=== PATIENT | male | born 1930 | race Caucasian/White ===

== ENCOUNTER 2016-11-01 18:07 | Inpatient (IN) | payer MEDICARE, OTHER ==
[2016-11-01] MEDS ORDERED: Sodium Chloride 0.9% 10 ML Syringe FLUSH PRN ×2 (18:32→19:26)
[2016-11-01] MEDS ORDERED: Sodium Chloride 0.9% 1,000 ML IV ONE (18:32)
--- NOTE | 2016-11-01 18:57 | EDM.PDOC ---
ED HPI GENERAL MEDICAL PROBLEM - General Chief Complaint: Head Injury Stated Complaint: Wandering Time Seen by Provider: 11/01/16 18:30 Source of Information: Reports: Patient, EMS, Other (Medical Historian from [facility] called and spoke to our Pastrycook Madeline. Madeline said that due to safety concerns (wandering, confusion), they are unable to take Hernan back at the [facility]. They feel he needs a higher level of care. ) History Limitations: Reports: Altered Mental Status - History of Present Illness INITIAL COMMENTS - FREE TEXT/NARRATIVE: 86 year old male is brought to the ED via [facility]. On arrival he has a c-collar and backboard in place. He was found wandering in the streets [place] of [facility]. He has dried blood to his upper lip. He is a resident of [facility]. He was last seen at 5pm this evening by staff at [facility]. He has a history of dementia with worsening confusion. The [facility] feels he needs higher level of care. The patient's son, who helps with most medical decisions, is out of town this week but was notified according to report by [facility]. He has a grandson in [facility] who will also be notified. The patient is awake but unable to give much history. He denies pain except for discomfort from the c-collar The patient's grandson arrived after arrival and reports that his grandfather has a history of fractures to his neck. No other history obtained from the grandson at this time. Generalized Pain Score (Numeric/FACES): 0 - Related Data Allergies Allergy/AdvReac Type Severity Reaction Status Date / Time No Known Allergies Allergy Verified 11/01/16 18:30 Home Meds: Home Meds Acetaminophen [Tylenol] 650 mg PO DAILY 10/31/15 [History] Carboxymethylcellulose Sodium [Refresh Tears] 1 squirt EYEBOTH BID 10/31/15 [ History] Furosemide [Lasix] 40 mg PO DAILY 10/31/15 [History] Levothyroxine Sodium [Synthroid] 25 mcg PO DAILY 10/31/15 [History] Propylene Glycol/PEG 400/Pf [Systane Ultra 0.4-0.3% Eye Drp] 1 drop EYEBOTH DAILY 10/31/15 [History] Simvastatin [Zocor] 20 mg PO DAILY 10/31/15 [History] Past Medical History HEENT History: Reports: Cataract Cardiovascular History: Reports: High Cholesterol, Hypertension Gastrointestinal History: Reports: Colon Polyp, Diverticulosis Musculoskeletal History: Reports: Gout Neurological History: Reports: Head Trauma Endocrine/Metabolic History: Reports: Hypothyroidism Oncologic (Cancer) History: Reports: Bladder, Prostate - Past Surgical History HEENT Surgical History: Reports: Cataract Surgery Male Surgical History: Reports: Vasectomy Neurological Surgical History: Reports: C-Spine Social & Family History - Family History Family Medical History: Noncontributory - Tobacco Use Smoking Status *Q: Former Smoker Used Tobacco, but Quit: Yes Month Tobacco Last Used: 12 - Alcohol Use Days Per Week of Alcohol Use: 0 - Recreational Drug Use Recreational Drug Use: No - Living Situation & Occupation Living situation: Reports: Assisted Living Occupation: Retired ED ROS GENERAL - Review of Systems Review Of Systems: ROS reveals no pertinent complaints other than HPI. (Unable to obtain any additional information) ED EXAM, HEAD INJURY - Physical Exam Exam: See Below Exam Limited By: Altered Mental Status General Appearance: Alert, WD/WN, No Apparent Distress Head: Normocephalic, Other (small amount of blood to upper lip. ). No: Scalp Swelling, Scalp Abrasions, Scalp Ecchymosis, Scalp Hematoma, Scalp Tenderness, Facial Ecchymosis, Facial Swelling Nexus Criteria: Altered Level of Consciousness Eyes: Bilateral Eye: EOMI, PERRL Throat/Mouth: Normal Oropharynx, No Airway Compromise, Other (dry mucos membranes, dried blood to upper lip, otherwise no abnormalities ) Neck: Other (C-collar in place. Unable to perform adquately c-spine exam due to patient's dementia. Will obtain CT ) Respiratory: No Respiratory Distress, Lungs Clear, Normal Breath Sounds, No Accessory Muscle Use, Chest Non-Tender, Other (no crepitus or subcutaneous air. no pain with palpation of the chest ) Cardiovascular: Normal Peripheral Pulses, Regular Rate, Rhythm, No Murmur, Other (1-2+ edema to bilateral lower extremities ) GI/Abdominal Exam: Normal Bowel Sounds, Soft, Non-Tender, No Distention, Pelvis Stable (Male) Exam: Other (Dry depends in place ) Back Exam: Normal Inspection, Full Range of Motion. No: Vertebral Tenderness Extremities: No Evidence of Injury, Normal Range of Motion, Non-Tender Neurologic: Alert, Other (confused but answers some questions. follows commands. strength to extremities is equal bilaterally ) Skin: Other (multiple bruises to body at various stages of healing ) - Armand Coma Score Best Eye Response ([place]): (4) Open Spontaneously Best Verbal Response ([place]): (4) Confused Conversation Best Motor Response ([place]): (6) Obeys Commands Course - Vital Signs Last Recorded V/S: Last Vital Signs Temp 99.0 F 11/01/16 18:18 Pulse 75 11/01/16 18:18 Resp 16 11/01/16 18:18 BP 124/52 L 11/01/16 18:18 Pulse Ox 95 11/01/16 18:18 - Orders/Labs/Meds Orders: Active Orders 24 hr Category Date Time Status Patient Status [ADT] Routine ADT 11/01/16 22:07 Ordered Peripheral IV Care [RC] . DIRECTED Care 11/01/16 18:32 Active Sodium Chloride 0.9% [Normal Saline] 1,000 ml Med 11/01/16 18:32 Active IV ONETIME Sodium Chloride 0.9% [Saline Flush] Med 11/01/16 18:32 Active 10 ml FLUSH ASDIRECTED PRN Sodium Chloride 0.9% [Saline Flush] Med 11/01/16 19:26 Active 10 ml FLUSH ONETIME PRN Peripheral IV Insertion Adult [OM.PC] Stat Oth 11/01/16 18:31 Ordered Medication Orders Sodium Chloride (Normal Saline) 1,000 mls @ 250 mls/hr IV ONETIME ONE Stop: 11/01/16 22:31 Last Admin: 11/01/16 18:45 Dose: 250 mls/hr Sodium Chloride (Saline Flush) 10 ml FLUSH ASDIRECTED PRN PRN Reason: Keep Vein Open Last Admin: 11/01/16 18:44 Dose: 10 ml Sodium Chloride (Saline Flush) 10 ml FLUSH ONETIME PRN PRN Reason: IV FLUSH Last Admin: 11/01/16 19:40 Dose: 10 ml Labs: Laboratory Tests 11/01/16 11/01/16 11/01/16 Range/Units 18:50 18:50 19:04 WBC 4.18 L (4.23-9.07) K/mm3 RBC 3.90 L (4.63-6.08) M/mm3 Hgb 11.9 L (13.7-17.5) gm/L Hct 36.6 L (40.1-51.0) % MCV 93.8 H (79.0-92.2) fl MCH 30.5 (25.7-32.2) pg MCHC 32.5 (32.2-35.5) g/dl RDW Std Deviation 42.6 (35.1-43.9) fL Plt Count 124 L (163-337) K/mm3 MPV 10.5 (9.4-12.3) fl Neut % (Auto) 73.0 H (34.0-67.9) % Lymph % (Auto) 14.1 L (21.8-53.1) % [place] % (Auto) 10.3 (5.3-12.2) % Eos % (Auto) 2.4 (0.8-7.0) Baso % (Auto) 0.2 (0.1-1.2) % Neut # (Auto) 3.05 (1.78-5.38) K/mm3 Lymph # (Auto) 0.59 L (1.32-3.57) K/mm3 [place] # (Auto) 0.43 (0.30-0.82) K/mm3 Eos # (Auto) 0.10 (0.04-0.54) K/mm3 Baso # (Auto) 0.01 (0.01-0.08) K/mm3 Sodium 143 (136-145) mEq/L Potassium 3.6 (3.5-5.1) mEq/L Chloride 108 H (98-107) mEq/L Carbon Dioxide 28 (21-32) mEq/L Anion Gap 10.6 (5-15) BUN 26 H (7-18) mg/dL Creatinine 1.4 H (0.7-1.3) mg/dL Est Cr Clr Drug Dosing TNP Estimated GFR (MDRD) 48 (>60) mL/min BUN/Creatinine Ratio 18.6 H (14-18) Glucose 125 H (83-115) mg/dL Calcium 8.4 L (8.5-10.1) mg/dL Total Bilirubin 0.5 (0.2-1.0) mg/dL AST 15 (15-37) U/L ALT 14 L (16-63) U/L Alkaline Phosphatase 67 (46-116) U/L Total Protein 6.9 (6.4-8.2) g/dl Albumin 3.3 L (3.4-5.0) g/dl Globulin 3.6 gm/dL Albumin/Globulin Ratio 0.9 L (1-2) Urine Color Yellow (Yellow) Urine Appearance Clear (Clear) Urine pH 6.0 (5.0-8.0) Ur Specific [place] 1.025 (1.005-1.030) Urine Protein Negative (Negative) Urine Glucose (UA) Negative (Negative) Urine Ketones Negative (Negative) Urine Occult Blood Negative (Negative) Urine Nitrite Negative (Negative) Urine Bilirubin Negative (Negative) Urine Urobilinogen 0.2 (0.2-1.0) Ur Leukocyte Esterase Negative (Negative) Urine RBC 0-5 (0-5) /hpf Urine WBC 0-5 (0-5) /hpf Ur Epithelial Cells 0-5 (0-5) /hpf Urine Bacteria Occasional (FEW) /hpf Urine Mucus Not seen (FEW) /hpf Meds: Medications Generic Name Dose Route Start Last Admin Trade Name Freq PRN Reason Stop Dose Admin Sodium Chloride 1,000 mls @ 250 mls/hr 11/01/16 18:32 11/01/16 18:45 Normal Saline IV 11/01/16 22:31 250 mls/hr ONETIME ONE Administration Sodium Chloride 10 ml 11/01/16 18:32 11/01/16 18:44 Saline Flush FLUSH 10 ml ASDIRECTED PRN Administration Keep Vein Open Sodium Chloride 10 ml 11/01/16 19:26 11/01/16 19:40 Saline Flush FLUSH 10 ml ONETIME PRN Administration IV FLUSH Discontinued Medications Generic Name Dose Route Start Last Admin Trade Name Freq PRN Reason Stop Dose Admin Iopamidol 100 ml 11/01/16 19:26 11/01/16 19:40 Isovue-300 (61%) IVPUSH 11/01/16 19:27 100 ml ONETIME ONE Administration - Re-Assessments/Exams Free Text/Narrative Re-Assessment/Exam: CBC is unremarkable. CMP reveals BUN 26 and creatinine of 1.4. UA is negative CTs obtained of head, neck, chest, abdomen, and pelvis. Only acute findings include 4 consecutive posterior, left rib fractures involving ribs 8-11. As mentioned in HPI, the [facility] is refusing to take the patient back as there is significant safety concerns related to the patient's confusion and wandering. They feel he needs a higher level of care. The patient's sons are out of town this weekend, one who is suffering from his own medical problems, and are unable to care for the patient. The only family member in town is a grandson. I spoke to our Hospitalist cyber systems operations specialist, Dr. Woods, who has accepted care of the patient for observation admission for altered mental status and rib fractures. Family was notified by nursing staff of plan of care. Departure - Departure Time of Disposition: 22:09 Disposition: Refer to Observation Condition: Fair Clinical Impression: Dementia Qualifiers: Dementia type: unspecified type Dementia behavioral disturbance: without behavioral disturbance Qualified Code(s): F03.90 - Unspecified dementia without behavioral disturbance Altered mental status Qualifiers: Altered mental status type: unspecified Qualified Code(s): R41.82 - Altered mental status, unspecified Rib fractures Qualifiers: Encounter type: initial encounter Rib fracture type: multiple ribs Fracture type: closed Laterality: left Qualified Code(s): S22.42XA - Multiple fractures of ribs, left side, initial encounter for closed fracture - Discharge Information Referrals: Ras Davenport MD [Primary Care Provider] - Forms: ED Department Discharge - My Orders Last 24 Hours: My Active Orders 11/01/16 18:31 Peripheral IV Insertion Adult [OM.PC] Stat 11/01/16 18:32 Peripheral IV Care [RC] . DIRECTED Sodium Chloride 0.9% [Normal Saline] 1,000 ml IV ONETIME Sodium Chloride 0.9% [Saline Flush] 10 ml FLUSH ASDIRECTED PRN 11/01/16 19:26 Sodium Chloride 0.9% [Saline Flush] 10 ml FLUSH ONETIME PRN 11/01/16 22:07 Patient Status [ADT] Routine - Assessment/Plan Last 24 Hours: My Active Orders 11/01/16 18:31 Peripheral IV Insertion Adult [OM.PC] Stat 11/01/16 18:32 Peripheral IV Care [RC] . DIRECTED Sodium Chloride 0.9% [Normal Saline] 1,000 ml IV ONETIME Sodium Chloride 0.9% [Saline Flush] 10 ml FLUSH ASDIRECTED PRN 11/01/16 19:26 Sodium Chloride 0.9% [Saline Flush] 10 ml FLUSH ONETIME PRN 11/01/16 22:07 Patient Status [ADT] Routine
[2016-11-01] MEDS ORDERED: Iopamidol 612 MG/ML 100 ML Bottle IVPUSH ONE (19:26)
--- NOTE | 2016-11-01 20:01 | CT ---
Head CT Technique: Multiple axial sections through the brain were obtained. Venous contrast was not utilized. Comparison: Previous head CT exam of 10/31/15. Findings: Ventricles along with basal cisterns and sulci over the convexities are moderately prominent. 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 Small area of increased density adjacent to the interhemispheric falx as seen on the left side compatible with small calcified meningioma which is stable. No other abnormal parenchymal densities are seen. No evidence of intracranial hemorrhage is seen. No midline shift or mass effect is seen. Bone window settings were reviewed which shows no discrete calvarial abnormality. Minimal areas of mucosal thickening are seen within the ethmoid sinuses which are incidental. No acute calvarial abnormality is appreciated. Impression: 1. Findings which are felt to be incidental as described above. No acute intracranial abnormality is identified. Diagnostic code #2
--- NOTE | 2016-11-01 20:22 | CT ---
CT chest Technique: Multiple axial sections through the chest were obtained. Intravenous contrast was utilized. Comparison: No previous CT chest study. Findings: Atherosclerotic change is noted within the thoracic aorta. Mediastinum and hilar regions are unremarkable. Mild coronary artery calcification is seen. No pericardial thickening is seen. Emphysematous changes are seen within both lungs. Mild atelectasis is seen posteriorly within the right lung base. No pulmonary contusion is seen. No pleural effusion is seen. No pneumothorax is identified. Bone window settings were reviewed which shows fractures within the posterior left eighth, ninth, 10th and 11th ribs. Several old rib fractures are also seen which appear healed with callus. Reconstructed sagittal images shows degenerative change within the thoracic spine with nothing acute being identified. Sternum appears to be intact on the reconstructed sagittal images. Impression: 1. Fractures within four posterior left ribs. 2. Emphysematous change and other incidental findings. No pulmonary contusion, pleural effusion or pneumothorax is seen. CT abdomen and pelvis Technique: Multiple axial sections were obtained from above the dome of the diaphragm inferiorly to the pubic symphysis. Intravenous contrast was utilized. No oral contrast has been given. Comparison: No previous abdominal or pelvic CT exam is available. Findings: Artifact noted within the upper abdomen from the patient's arms. Liver shows no discrete abnormality. Gallbladder shows no gallstones. Spleen appears within normal limits. Adrenal glands show no nodule. Pancreas is within normal limits. Kidneys show symmetric contrast enhancement without hydronephrosis. Incidental cyst is noted within the left kidney measuring 3.8 cm. Aorta shows atherosclerotic change which continues into the iliac vessels without aneurysm. No retroperitoneal adenopathy or mesenteric abnormalities are seen. No pelvic mass or adenopathy is seen. Fat-containing left inguinal hernia is incidentally noted. Delayed images shows contrast within the distal ureters and within the bladder. Bone window settings were reviewed. No discrete pelvic or hip fracture is appreciated. Degenerative change is noted within the spine. No discrete lumbar spine fracture is seen. Degenerative change is scattered within the spine. Spondylitic defects are seen at L5-S1 with mild spondylolisthesis. Impression: 1. Findings felt to be chronic and incidental as described above. 2. Nothing acute is identified on CT study of the abdomen and pelvis. Diagnostic code #2
--- NOTE | 2016-11-01 20:22 | CT ---
CT cervical spine Technique: Multiple axial sections were obtained from above C1 inferiorly to the top of T2. Reconstructed sagittal and coronal images were reviewed. Comparison: Previous CT cervical spine exam of 07/25/13. Findings: Old dens fracture is noted. This is affixed with a single screw. Fracture line still visible. Degenerative change is noted between the dens and anterior arch of C1. Disc space narrowing is seen within the cervical spine which is most severe at C3-4, C4-5 and C5-6. Posterior osteophytes are noted at C4-5 and C5-6. Anterior osteophytes are noted at C3-4 through C6-7. Mastoid sinuses and middle ear cavities are clear. There is a moderate amount of cerumen seen within the external auditory canal on the right side. Posterior skull base is intact. Severe bilateral neural foraminal stenosis noted at C3-4. Mild right-sided neural foraminal stenosis is seen at C5-6. Degenerative apophyseal change is noted within the cervical spine more prominent on the left side. No acute fracture is seen. No acute subluxation is seen. Impression: 1. Old dens fracture affixed with a screw. Fracture line still visible. 2. Degenerative change as described above. 3. No acute fracture or other acute subluxation is seen. 4. Moderate amount of cerumen within the right external canal as an incidental note. Diagnostic code: #3
[2016-11-01] MEDS ORDERED: Temazepam 7.5 MG Cap PO PRN (23:26)
[2016-11-01] MEDS ORDERED: Morphine 2 MG/ML Syringe IVPUSH PRN (23:27)
[2016-11-01] MEDS: Ibuprofen 600 MG Tab PO PRN (23:44)
[2016-11-02] MEDS: Levothyroxine 25 MCG Tab PO SCH (06:25)
--- NOTE | 2016-11-02 06:47 | PCM.HP ---
H&P History of Present Illness - General Date of Service: 11/01/16 Admit Problem/Dx: Admission Diagnosis/Problem Admission Diagnosis/Problem Altered mental status Source of Information: Provider History Limitations: Reports: No Limitations - History of Present Illness Initial Comments - Free Text/Narative: 86 year old male probable dementia, presents after wandering out of [facility]. He was ED for several hours. The social sciences chair, Tess Long was notified. He apparently will be placed at an SNF, the process will be initiated on this admission. He has had a series of radiographic studies. The CT of the head, and abdomen/pelvis are unremarkable for acute. The CT of the chest documented posterior rib fractures, four posterior ribs. He has required no pain medication. He was placed in a C Collar that has been discontinued. Onset of Symptoms: Reports: Sudden Duration of Symptoms: Reports: Hour(s):, Getting Worse Location: Reports: Generalized Improves with: Reports: None Worsens with: Reports: None Associated Symptoms: Reports: Confusion Generalized Pain Score (Numeric/FACES): 0 - Related Data Allergies/Adverse Reactions: Allergies Allergy/AdvReac Type Severity Reaction Status Date / Time No Known Allergies Allergy Verified 11/02/16 00:04 Home Medications: Home Meds Acetaminophen [Tylenol] 650 mg PO DAILY 10/31/15 [History] Carboxymethylcellulose Sodium [Refresh Tears] 1 squirt EYEBOTH BID 10/31/15 [ History] Furosemide [Lasix] 40 mg PO DAILY 10/31/15 [History] Levothyroxine Sodium [Synthroid] 25 mcg PO DAILY 10/31/15 [History] Propylene Glycol/PEG 400/Pf [Systane Ultra 0.4-0.3% Eye Drp] 1 drop EYEBOTH DAILY 10/31/15 [History] Simvastatin [Zocor] 20 mg PO DAILY 10/31/15 [History] Past Medical History HEENT History: Reports: Cataract Cardiovascular History: Reports: High Cholesterol, Hypertension Gastrointestinal History: Reports: Colon Polyp, Diverticulosis Musculoskeletal History: Reports: Gout Neurological History: Reports: Head Trauma Endocrine/Metabolic History: Reports: Hypothyroidism Oncologic (Cancer) History: Reports: Bladder, Prostate - Infectious Disease History Other Infectious Disease History: unknown for sure...pt unable to answer and it is not in his records. - Past Surgical History HEENT Surgical History: Reports: Cataract Surgery Male Surgical History: Reports: Vasectomy Neurological Surgical History: Reports: C-Spine Social & Family History - Family History Family Medical History: Noncontributory - Tobacco Use Smoking Status *Q: Former Smoker Used Tobacco, but Quit: Yes Month Tobacco Last Used: 12 - Caffeine Use Caffeine Use Comment: pt unable to answer these questions and no family is present here with him, no info in records from [facility] - Alcohol Use Days Per Week of Alcohol Use: 0 - Recreational Drug Use Recreational Drug Use: No - Living Situation & Occupation Living situation: Reports: Assisted Living Occupation: Retired H&P Review of Systems - Review of Systems: Review Of Systems: See Below General: Reports: No Symptoms HEENT: Reports: No Symptoms Pulmonary: Reports: No Symptoms Cardiovascular: Reports: No Symptoms Gastrointestinal: Reports: No Symptoms Genitourinary: Reports: No Symptoms Musculoskeletal: Reports: No Symptoms Skin: Reports: No Symptoms Psychiatric: Reports: Confusion Neurological: Reports: No Symptoms Hematologic/Lymphatic: Reports: No Symptoms Immunologic: Reports: No Symptoms Exam - Exam Exam: See Below - Vital Signs Vital Signs: Last Vital Signs Temp 36.7 C 11/02/16 03:34 Pulse 49 L 11/02/16 03:34 Resp 17 11/02/16 03:34 BP 118/58 L 11/02/16 03:34 Pulse Ox 94 L 11/02/16 03:34 Weight: 94.211 kg - Exam Quality Assessment: DVT Prophylaxis General: Alert, Oriented (self), Cooperative HEENT: EOMI, Nares Patent, Normal Nasal Septum, Pupils Equal, Pupils Reactive, PERRLA Neck: Supple, Trachea Midline Lungs: Normal Respiratory Effort Cardiovascular: Regular Rate Abdomen: Normal Bowel Sounds, Soft (Male) Exam: Deferred Rectal (Males) Exam: Deferred Back Exam: Normal Inspection Extremities: Normal Inspection, Normal Pulses Skin: Warm Neurological: Cranial Nerves Intact Neuro Extensive - Mental Status: Alert, Normal Mood/Affect, Normal Cognition, Memory Intact Neuro Extensive - Motor, Sensory, Reflexes: CN II-XII Intact Psychiatric: Alert, Normal Affect, Normal Mood - Patient Data Lab Results Last 24 hrs: Laboratory Results - last 24 hr 11/01/16 Range/Units 23:53 MRSA (PCR) Negative Result Diagrams: 11/01/16 18:50 11/01/16 18:50 *Q Meaningful Use (ADM) - VTE *Q VTE Criteria *Q: - Stroke *Q Stroke Criteria *Q: - AMI *Q AMI Criteria *Q: - Problem List (1) Hyperlipidemia SNOMED Code(s): 67640533 ICD Code: E78.5 - HYPERLIPIDEMIA, UNSPECIFIED Status: Acute Current Visit : Yes (2) Hypertension SNOMED Code(s): 10777680 ICD Code: I10 - ESSENTIAL (PRIMARY) HYPERTENSION Status: Acute Current Visit: Yes (3) Diverticulosis SNOMED Code(s): 999941337 ICD Code: K57.90 - DVRTCLOS OF INTEST, PART UNSP, W/O PERF OR ABSCESS W/O BLEED Status: Acute Current Visit: Yes (4) Dementia SNOMED Code(s): 09932064 ICD Code: F03.90 - UNSPECIFIED DEMENTIA WITHOUT BEHAVIORAL DISTURBANCE Status: Acute Current Visit: Yes Qualifiers: Dementia type: unspecified type Dementia behavioral disturbance: without behavioral disturbance Qualified Code(s): F03.90 - Unspecified dementia without behavioral disturbance (5) Rib fractures SNOMED Code(s): 06853947 ICD Code: S22.39XA - FRACTURE OF ONE RIB, UNSP SIDE, INIT FOR CLOS FX Status: Acute Current Visit: Yes Qualifiers: Encounter type: initial encounter Rib fracture type: multiple ribs Fracture type: closed Laterality: left Qualified Code(s): S22.42XA - Multiple fractures of ribs, left side, initial encounter for closed fracture Problem List Initiated/Reviewed/Updated: Yes Orders Last 24hrs: Active Orders 24 hr Category Date Time Status Admission Status [Patient Status] [ADT] Routine ADT 11/01/16 22:05 Active Patient Status [ADT] Routine ADT 11/01/16 22:07 Active Antiembolic Devices [RC] PER UNIT ROUTINE Care 11/01/16 23:38 Active Bladder Scan [RC] ASDIRECTED Care 11/02/16 06:03 Active Oxygen Therapy [RC] ASDIRECTED Care 11/01/16 23:27 Active Urinary Catheter Assessment [RC] ASDIRECTED Care 11/02/16 06:05 Active Urinary Catheter Insertion [Insert Urinary Catheter] [ Care 11/02/16 06:15 Ordered OM.PC] Routine OT Evaluation and Treatment [CONS] Routine Cons 11/01/16 23:32 Active PT Evaluation and Treatment [CONS] Routine Cons 11/01/16 23:31 Active Regular Diet [DIET] Diet 11/02/16 Breakfast Active CBC W/O DIFF,HEMOGRAM [HEME] MOTH@0700 Lab 11/05/16 07:00 Ordered CBC W/O DIFF,HEMOGRAM [HEME] MOTH@0700 Lab 11/08/16 07:00 Ordered CBC W/O DIFF,HEMOGRAM [HEME] MOTH@0700 Lab 11/12/16 07:00 Ordered CBC W/O DIFF,HEMOGRAM [HEME] MOTH@0700 Lab 11/15/16 07:00 Ordered CBC W/O DIFF,HEMOGRAM [HEME] MOTH@0700 Lab 11/19/16 07:00 Ordered CBC W/O DIFF,HEMOGRAM [HEME] MOTH@0700 Lab 11/22/16 07:00 Ordered Acetaminophen [Tylenol] Med 11/02/16 09:00 Active 650 mg PO DAILY Enoxaparin [Lovenox] Med 11/02/16 09:00 Active 40 mg SUBCUT DAILY Furosemide [Lasix] Med 11/03/16 09:00 Active 40 mg PO DAILY Hypromellose [Isopto Tears 0.5% Ophth Soln] Med 11/02/16 09:00 Active 0 ml EYEBOTH BID Ibuprofen [Motrin] Med 11/01/16 23:25 Active 600 mg PO Q6H PRN Lanolin/Min Oil/Petrolatum [Artificial Tears] Med 11/02/16 21:00 Active 0 gm EYEBOTH BEDTIME Levothyroxine Med 11/02/16 06:00 Active 25 mcg PO ACBREAKFAST Morphine Med 11/01/16 23:27 Active 1 mg IVPUSH Q4H PRN Simvastatin [Zocor] Med 11/02/16 21:00 Active 20 mg PO BEDTIME Sodium Chloride 0.9% [Saline Flush] Med 11/02/16 09:00 Active 10 ml FLUSH BID Temazepam [Restoril] Med 11/01/16 23:26 Active 7.5 mg PO BEDTIME PRN CM Social Work Follow Up [CM] Routine Oth 11/01/16 23:33 Active NILS Hose [Antiembolic Hose] [OM.PC] Routine Oth 11/01/16 23:37 Ordered Code Status [Resuscitation Status] Routine Resus Stat 11/01/16 23:40 Ordered Medication Orders Acetaminophen (Tylenol) 650 mg PO DAILY NISA Artificial Tears (Isopto Tears 0.5% Ophth Soln) 0 ml EYEBOTH BID NISA Artificial Tears (Artificial Tears) 0 gm EYEBOTH BEDTIME NISA Enoxaparin Sodium (Lovenox) 40 mg SUBCUT DAILY NISA Furosemide (Lasix) 40 mg PO DAILY NISA Ibuprofen (Motrin) 600 mg PO Q6H PRN PRN Reason: Pain Last Admin: 11/01/16 23:44 Dose: 600 mg Levothyroxine Sodium (Levothyroxine) 25 mcg PO ACBREAKFAST NISA Last Admin: 11/02/16 06:25 Dose: 25 mcg Morphine Sulfate (Morphine) 1 mg IVPUSH Q4H PRN PRN Reason: Pain Simvastatin (Zocor) 20 mg PO BEDTIME NISA Sodium Chloride (Saline Flush) 10 ml FLUSH BID NISA Temazepam (Restoril) 7.5 mg PO BEDTIME PRN PRN Reason: Sleep Assessment/Plan Comment:: Impression: Dementia, with "acute" on chronic, unspecified GCS 14 Posterior rib fractures, asymptomatic Chronic HTN HLD Hypothyroidism Hx of colon polyps Query prostate/bladder cancer Hx of Diverticulosis Plan: Pain mgt Home meds Daily Labs; check TSH, lipids, etc Cognitive eval with SP SW/PT/OT DVT/GI prophylaxis
[2016-11-02] MEDS: Hypromellose 0.5% Ophth Soln 15 ML Bottle EYEBOTH SCH ×2 (08:02→20:23)
[2016-11-02] MEDS: Enoxaparin 40 MG/0.4 ML Syringe SUBCUT SCH (08:02)
[2016-11-02] MEDS: Acetaminophen 325 MG Tab PO SCH (08:04)
[2016-11-02] MEDS: Biotin/Folic Acid/Vitamin C/Vitamin B Complex Tab PO SCH (08:04)
[2016-11-02] MEDS: Sodium Chloride 0.9% 10 ML Syringe FLUSH SCH ×2 (08:13→20:25)
[2016-11-02] MEDS ORDERED: CARBOXYMETHYLCELLULOSE SODIUM EYEBOTH SCH (09:00)
[2016-11-02] MEDS ORDERED: Simvastatin 20 MG Tab PO SCH (09:00)
[2016-11-02] MEDS ORDERED: Levothyroxine 25 MCG Tab PO SCH (09:00)
[2016-11-02] MEDS ORDERED: Furosemide 40 MG Tab PO SCH (09:00)
[2016-11-02] MEDS ORDERED: Enoxaparin 40 MG/0.4 ML Syringe SUBCUT SCH (09:00)
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
[2016-11-02] MEDS: Lanolin/Mineral Oil/Petrolatum Ophth Oint 3.5 GM Tube EYEBOTH SCH (20:23)
[2016-11-02] MEDS: Thiamine 100 MG Tab PO SCH (20:23)
[2016-11-02] MEDS: Simvastatin 20 MG Tab PO SCH (20:24)
[2016-11-02] MEDS: Tamsulosin 0.4 MG Cap.ER PO SCH (21:19)
[2016-11-03] MEDS: Levothyroxine 25 MCG Tab PO SCH (05:12)
[2016-11-03] MEDS: Ibuprofen 600 MG Tab PO PRN (05:13)
[2016-11-03] MEDS: Biotin/Folic Acid/Vitamin C/Vitamin B Complex Tab PO SCH (08:04)
[2016-11-03] MEDS: Tamsulosin 0.4 MG Cap.ER PO SCH ×2 (08:04→17:20)
[2016-11-03] MEDS: Acetaminophen 325 MG Tab PO SCH (08:05)
[2016-11-03] MEDS: Hypromellose 0.5% Ophth Soln 15 ML Bottle EYEBOTH SCH ×2 (08:06→20:05)
[2016-11-03] MEDS: Furosemide 40 MG Tab PO SCH (08:06)
[2016-11-03] MEDS: Enoxaparin 40 MG/0.4 ML Syringe SUBCUT SCH (08:06)
[2016-11-03] MEDS: Sodium Chloride 0.9% 10 ML Syringe FLUSH SCH (08:07)
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
[2016-11-03] MEDS ORDERED: Levothyroxine 25 MCG Tab PO ONE (17:00)
[2016-11-03] MEDS: Simvastatin 20 MG Tab PO SCH (20:06)
[2016-11-03] MEDS: Donepezil 10 MG Tab PO SCH (20:06)
[2016-11-03] MEDS: Thiamine 100 MG Tab PO SCH (20:06)
[2016-11-03] MEDS: Memantine 10 MG Tab PO SCH (20:06)
[2016-11-03] MEDS: Lanolin/Mineral Oil/Petrolatum Ophth Oint 3.5 GM Tube EYEBOTH SCH (20:07)
[2016-11-03] MEDS ORDERED: Donepezil 10 MG Tab PO SCH (21:00)
[2016-11-04] MEDS: Levothyroxine 50 MCG Tab PO SCH (06:43)
[2016-11-04] MEDS: Ibuprofen 600 MG Tab PO PRN ×2 (06:50→22:06)
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
[2016-11-04] MEDS: Memantine 10 MG Tab PO SCH ×2 (08:54→22:05)
[2016-11-04] MEDS: Furosemide 40 MG Tab PO SCH (08:54)
[2016-11-04] MEDS: Enoxaparin 40 MG/0.4 ML Syringe SUBCUT SCH (08:54)
[2016-11-04] MEDS: Tamsulosin 0.4 MG Cap.ER PO SCH ×2 (08:55→17:33)
[2016-11-04] MEDS: Hypromellose 0.5% Ophth Soln 15 ML Bottle EYEBOTH SCH ×2 (08:55→22:07)
[2016-11-04] MEDS: Acetaminophen 325 MG Tab PO SCH (08:56)
[2016-11-04] MEDS: Biotin/Folic Acid/Vitamin C/Vitamin B Complex Tab PO SCH (08:58)
[2016-11-04] MEDS: Thiamine 100 MG Tab PO SCH (22:05)
[2016-11-04] MEDS: Simvastatin 20 MG Tab PO SCH (22:06)
[2016-11-04] MEDS: Donepezil 10 MG Tab PO SCH (22:06)
[2016-11-04] MEDS: Lanolin/Mineral Oil/Petrolatum Ophth Oint 3.5 GM Tube EYEBOTH SCH (22:07)
[2016-11-04] MEDS: Sodium Chloride 0.9% 10 ML Syringe FLUSH SCH (23:54)
[2016-11-05] MEDS: Ibuprofen 600 MG Tab PO PRN (06:41)
[2016-11-05] MEDS: Levothyroxine 50 MCG Tab PO SCH (06:41)
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
[2016-11-05] MEDS: Enoxaparin 40 MG/0.4 ML Syringe SUBCUT SCH (08:39)
[2016-11-05] MEDS: Memantine 10 MG Tab PO SCH (08:40)
[2016-11-05] MEDS: Hypromellose 0.5% Ophth Soln 15 ML Bottle EYEBOTH SCH (08:40)
[2016-11-05] MEDS: Tamsulosin 0.4 MG Cap.ER PO SCH (08:40)
[2016-11-05] MEDS: Furosemide 40 MG Tab PO SCH (08:40)
[2016-11-05] MEDS: Acetaminophen 325 MG Tab PO SCH (08:40)
[2016-11-05] MEDS: Biotin/Folic Acid/Vitamin C/Vitamin B Complex Tab PO SCH (08:40)
[2016-11-05] MEDS ORDERED: Pneumococcal 13-Valent Conjugate Vaccine 0.5 ML Syringe IM ONE (09:00)
[2016-11-05 12:17] VITALS: BP 135/66
[2016-11-06] MEDS ORDERED: Ferrous Sulfate 325 MG Tab PO SCH (08:00)
== END 2016-11-05 13:05 | disposition other institution (70) | DRG 948 ==
LOC: JD.ED 18:07 → SUPCPDRO 18:07 → JD.MS 21:21 → OBSVTOIN 11-02 11:05
PROVIDERS: ADMIT Internal Medicine Cardiovascular Disease; ATTEND Internal Medicine Cardiovascular Disease
PROC: 3E0234Z Introduction of Serum, Toxoid and Vaccine into Muscle, Percutaneous Approach (ICD-10-PCS; principal; 2016-11-05)
DX: R41.82 Altered mental status, unspecified (principal); S22.42XA Multiple fractures of ribs, left side, initial encounter for closed fracture; F03.90 Unspecified dementia, unspecified severity, without behavioral disturbance, psychotic disturbance, mood disturbance, and anxiety; K57.90 Diverticulosis of intestine, part unspecified, without perforation or abscess without bleeding; E78.5 Hyperlipidemia, unspecified; I11.0 Hypertensive heart disease with heart failure; I50.9 Heart failure, unspecified; E78.00 Pure hypercholesterolemia, unspecified; E03.9 Hypothyroidism, unspecified; M10.9 Gout, unspecified; Z85.46 Personal history of malignant neoplasm of prostate; Z85.51 Personal history of malignant neoplasm of bladder; Z87.891 Personal history of nicotine dependence; G47.00 Insomnia, unspecified; R33.9 Retention of urine, unspecified; X58.XXXA Exposure to other specified factors, initial encounter; Z79.899 Other long term (current) drug therapy; Z23 Encounter for immunization; D50.9 Iron deficiency anemia, unspecified; Z66 Do not resuscitate
CPT/HCPCS: 36415; 70450; 71260; 72125; 74177; 80053; 81001; 85025; 87641; 96360; 96361; 99285; A9270 ×5; J1650; J7040; J7050 ×3; P9612; Q9967; 51701; 51798; 80048; 80061; 82607; 82746; 83090; 83540; 83735; 84439; 84443; 84466; 86140; 86592; 90670; 92610-GN; 96125-GN; 96372; 97116-GP; 97162-GP; 97166-GO; 99284; G0009; G0378

== ENCOUNTER 2017-09-15 21:48 | Emergency (ER) | payer MEDICARE, OTHER ==
[2017-09-15 22:01] VITALS: BP 153/74
[2017-09-15] MEDS ORDERED: Lidocaine/EPINEPHrine/Tetracaine Soln 1 ML TOP STA (22:21)
--- NOTE | 2017-09-15 23:12 | EDM.PDOC ---
ED HPI GENERAL MEDICAL PROBLEM - General Chief Complaint: Head Injury Stated Complaint: [facility] Time Seen by Provider: 09/15/17 22:07 Source of Information: Reports: Patient History Limitations: Reports: Physical Impairment (Dementia) - History of Present Illness INITIAL COMMENTS - FREE TEXT/NARRATIVE: According to staff at [facility], the patient ordinarily ambulates with assistance, however, he has dementia and got up on his own tonight, falling, striking the left side of his head on a table. He is also complaining of right shoulder and left hip pain. According to the [facility] staff, the patient falls a lot. Due to the patient's dementia, he is not able to contribute to any of his past medical history. The patient's PCP is Dr. Davenport. - Related Data Allergies Allergy/AdvReac Type Severity Reaction Status Date / Time No Known Allergies Allergy Verified 11/02/16 00:04 Home Meds: Home Meds Furosemide [Lasix] 60 mg PO DAILY 10/31/15 [History] Propylene Glycol/PEG 400/Pf [Systane Ultra 0.4-0.3% Eye Drp] 1 drop EYEBOTH BID 10/31/15 [History] Simvastatin [Zocor] 20 mg PO DAILY 10/31/15 [History] Ferrous Sulfate 325 mg PO WITHBREAKFAST #30 tablet 11/05/16 [Rx] Levothyroxine [Synthroid] 50 mcg PO ACBREAKFAST #30 tablet 11/05/16 [Rx] Memantine [Namenda] 10 mg PO BID #30 tablet 11/05/16 [Rx] Tamsulosin [Flomax] 0.4 mg PO BIDPC #30 cap.er 11/05/16 [Rx] Acetaminophen [Tylenol] 650 mg PO TID 09/15/17 [History] Ascorbic Acid 500 mg PO DAILY 09/15/17 [History] Donepezil [Aricept] 10 mg PO BEDTIME 09/15/17 [History] Furosemide 40 mg PO 1200 09/15/17 [History] guaiFENesin [Mucinex] 600 mg PO BID 09/15/17 [History] Past Medical History HEENT History: Reports: Impaired Vision Cardiovascular History: Reports: High Cholesterol, Hypertension Gastrointestinal History: Reports: Colon Polyp, Diverticulosis Musculoskeletal History: Reports: Gout Neurological History: Reports: Other (See Below) (Dementia) Endocrine/Metabolic History: Reports: Hypothyroidism Oncologic (Cancer) History: Reports: Bladder, Prostate - Infectious Disease History Other Infectious Disease History: unknown for sure...pt unable to answer and it is not in his records. - Past Surgical History HEENT Surgical History: Reports: Cataract Surgery Male Surgical History: Reports: Vasectomy Neurological Surgical History: Reports: C-Spine Social & Family History - Family History Family Medical History: Noncontributory - Tobacco Use Smoking Status *Q: Unknown Ever Smoked - Caffeine Use Caffeine Use Comment: pt unable to answer these questions and no family is present here with him, no info in records from [facility] - Living Situation & Occupation Living situation: Reports: Extended Care Facility ([facility]) Occupation: Retired ED ROS GENERAL - Review of Systems Review Of Systems: ROS reveals no pertinent complaints other than HPI. ED EXAM, HEAD INJURY - Physical Exam Exam: See Below Exam Limited By: Other (The patient does not follow commands) General Appearance: Alert, WD/WN, No Apparent Distress Head: Normocephalic, Facial Lacerations (Approximately 3 cm irregular laceration to the left frontoparietal area) Eyes: Bilateral Eye: EOMI, Normal Inspection Ears: Normal External Exam, Normal Canal, Normal TMs Nose: Normal Inspection, Normal Mucousa, No Blood Throat/Mouth: Normal Inspection, Normal Lips, Normal Voice, No Airway Compromise Neck: Normal Alignment, Normal Inspection, Limited Range of Motion Respiratory: No Respiratory Distress, Lungs Clear, Normal Breath Sounds, No Accessory Muscle Use Cardiovascular: Normal Peripheral Pulses, Regular Rate, Rhythm, No Gallop, No JVD, No Murmur, No Rub GI/Abdominal Exam: Normal Bowel Sounds, Soft, Non-Tender, No Organomegaly, No Distention, No Abnormal Bruit, No Mass (Male) Exam: Deferred Rectal (Males) Exam: Deferred Back Exam: Full Range of Motion, Normal Inspection, NT Extremities: Normal Range of Motion, Normal Capillary Refill, Other (No visible or palpable injury to the right shoulder, however the patient reports painful PROM. No visible or palpable abnormality to the left hip, however, the patient reports tenderness to palpation anteriorly. There are lacerations to both thumbs. On the left, there is a 1.5 cm linear laceration over the first MCP joint. On the right, there is an "L" shaped laceration to the proximal phalanx, one are measuring 1.5 cm, the other 2.5 cm.) Neurologic: Other (The patient moves slowly, but moves all extremities. It is unclear if he understands commands, but does not follow any.) Skin: Normal Color, Warm/Dry, Other (Skin is thin) ED LACERATION/WOUND & BECKY PROC - Laceration/Wound Repair Left Head Lac/wound length in cm: 3 Appearance: Subcutaneous, Irregular, Clean Anesthetic Type: Topical (LET) Skin Prep: Saline Exploration/Debridement/Repair: Wound Explored, In a Bloodless Field, Explored to Base, Wound Margins Revised Closed with: Maira # of Sutures: 4 Sterile Dressing Applied: Nurse Tetanus Status Addressed: Yes Complications: No Course - Vital Signs Last Recorded V/S: Last Vital Signs Temp 35.9 C 09/15/17 21:57 Pulse 65 09/15/17 21:57 Resp 16 09/15/17 21:57 BP 153/74 H 09/15/17 21:57 Pulse Ox 90 L 09/15/17 21:57 - Orders/Labs/Meds Orders: Active Orders 24 hr Category Date Time Status Hip Min 2V or 3V w Pelvis Lt [CR] Stat Exams 09/15/17 22:22 Taken Shoulder Comp Lt [CR] Stat Exams 09/15/17 22:21 Taken Shoulder Comp Rt [CR] Stat Exams 09/15/17 23:17 Taken Meds: Medications Discontinued Medications Generic Name Dose Route Start Last Admin Trade Name Zakq PRN Reason Stop Dose Admin Lidocaine/Tetracaine 2 ml 09/15/17 22:21 09/15/17 22:27 Let Soln TOP 09/15/17 22:22 2 ml ONETIME STA Administration - Re-Assessments/Exams Free Text/Narrative Re-Assessment/Exam: 09/15/17 23:10 3-view radiographs of the left hip and pelvis appear to demonstrate 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 No fracture or dislocation identified. Formal read per the Radiologist pending. Radiographs of the right shoulder were ordered, however, radiographs of the left shoulder were obtained. I have asked the radiology services manager to return to obtain the correct radiographs. 09/15/17 23:42 3-view radiographs of the right shoulder appear to be normal. No fracture or dislocation identified. Formal read per the Radiologist pending. 09/16/17 01:29 Significant delay in disposition due to my managing two other critical patients. Following application of LET, 4 maira were placed into the left frontoparietal laceration. The two thumb lacerations were Steri-Stripped per Cathy DANIEL, as the patient's skin appears to be too thin to support sutures. Departure - Departure Time of Disposition: 01:30 Disposition: Home, Self-Care 01 Condition: Fair Clinical Impression: [facility] at [facility], Forehead laceration, Thumb laceration - Discharge Information Instructions: Laceration Care, Adult Referrals: Ras Davenport MD [Primary Care Provider] - Forms: ED Department Discharge Additional Instructions: Mr. Olvera was seen in the emergency room after falling [facility] the [facility], sustaining a laceration to his left sikhism area and both of his thumbs. He was also complaining of right shoulder and left hip pain. Workup in the ER included x-rays of his right shoulder and left hip, all of which were normal. No broken bones were found. He received 4 maira to his left sikhism area. The wound should be kept clean with ordinary soap and water or shampoo and water. A bandage may be placed over the wound if it is weeping, but is not necessary. Antibiotic ointment is not necessary. The maira should be ready for removal , 09/23/2017 and Saturday, 2017. A special tool is required to remove the maira. They can be removed at a walk-in clinic, by a nurse at his doctor's office, or in the ER. The lacerations to each of his thumbs were Steri-Stripped. He may wash his hands , but the Steri-Strips should not be soaked. Allow them to fall off on their own. He may follow-up with his PCP, Dr. Davenport, as needed. If any other problems, please do not hesitate to return Mr. Olvera to the ER. - My Orders Last 24 Hours: My Active Orders 09/15/17 22:21 Shoulder Comp Lt [CR] Stat 09/15/17 22:22 Hip Min 2V or 3V w Pelvis Lt [CR] Stat 09/15/17 23:17 Shoulder Comp Rt [CR] Stat - Assessment/Plan Last 24 Hours: My Active Orders 09/15/17 22:21 Shoulder Comp Lt [CR] Stat 09/15/17 22:22 Hip Min 2V or 3V w Pelvis Lt [CR] Stat 09/15/17 23:17 Shoulder Comp Rt [CR] Stat
--- NOTE | 2017-09-16 08:36 | CR ---
Left shoulder: Three views of the left shoulder were obtained. Comparison: No prior shoulder exams. Glenohumeral joint appears within normal limits. Slight degenerative change is noted within the acromioclavicular joint. Several old appearing and healed left-sided rib fractures are seen. Lucent line also noted next to an old fracture within the left seventh rib which may represent an acute fracture. Impression: 1. Old healed left-sided rib fractures. Equivocal acute fracture within the left seventh rib. Please correlate if patient has any correlating symptoms. 2. Degenerative change. No other acute abnormality is appreciated. Diagnostic code #3
--- NOTE | 2017-09-16 08:36 | CR ---
Right shoulder: Three views of the right shoulder were obtained. Comparison: No prior right shoulder exam. Acromioclavicular joint shows minimal narrowing. Glenohumeral joint appears within normal limits. No fracture, dislocation or other bony abnormality is seen. Impression: 1. Slight degenerative joint space narrowing within the acromioclavicular joint. 2. Nothing acute is seen on right shoulder study. Diagnostic code #2
--- NOTE | 2017-09-16 08:36 | CR ---
Pelvis and left hip: AP view of the pelvis was obtained as well as AP and frog-leg lateral views of the left hip. Comparison: Prior pelvis exam of 07/25/13. Calcification noted off the superior right hip which is stable from previous exam and therefore felt to be incidental. Joint spaces within both hips are felt to be preserved. Sacroiliac joints are within normal limits. No fracture or other abnormality is identified. Impression: 1. Calcification off the superior right hip which is stable from prior exam and is therefore felt to be incidental. 2. Nothing acute is seen on AP pelvis or on two-view left hip exam. Diagnostic code #2
== END 2017-09-16 02:31 | disposition home or self-care (01) ==
LOC: JD.ED 21:48
DX: S01.81XA Laceration without foreign body of other part of head, initial encounter (principal); S61.012A Laceration without foreign body of left thumb without damage to nail, initial encounter; S61.011A Laceration without foreign body of right thumb without damage to nail, initial encounter; W19.XXXA Unspecified fall, initial encounter; Y92.129 Unspecified place in nursing home as the place of occurrence of the external cause
CPT/HCPCS: 12002; 73030; 73502; 99285; A9270; 12013; 99283